=== PATIENT | male | born 1980 | race Caucasian/White ===

== ENCOUNTER 2024-04-07 20:48 | Emergency (ER) | payer MEDICAID, OTHER, SELFPAY ==
[2024-04-07 20:52] VITALS: BP 170/101
[2024-04-07 21:17] VITALS: BMI 26.3
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
[2024-04-07] MEDS: PERCOCET 5/325 1 TABLET PO (22:02)
[2024-04-07 22:20] VITALS: BP 170/89
== END 2024-04-07 22:22 | disposition home or self-care (01) ==
LOC: EMR 20:48
PROVIDERS: EMERGENCY PHYSICIAN Emergency Medicine; FAMILY PHYSICIAN Family Medicine
DX: K12.2 Cellulitis and abscess of mouth (principal); F17.200 Nicotine dependence, unspecified, uncomplicated
CPT/HCPCS: 99282; 10060; 87070; 87205